=== PATIENT | male | born 1975 | race African-American/Black ===

== ENCOUNTER 2023-05-29 20:57 | Emergency (ER) | payer MEDICARE, MEDICAID ==
[~2023-05-29] VITALS: Ht 180.3 cm; Wt 81.0 kg
[~2023-05-29 20:57] MED LIST: OMEP20CA14 PO; PARO10TA74 PO; RISP-29 PO
[2023-05-29 21:00] VITALS: O2SAT 98
[2023-05-29 21:30] VITALS: BP 136/88; PULSE 84; RESP 18; TEMP 98.4
[2023-05-29] MEDS: KETOROLAC 60MG/2ML VIAL IM ONE (21:30)
[2023-05-29] MEDS: ACETAMINOPHEN 500MG TABLET PO ONE (21:30)
[2023-05-30 00:06] LABS: BASOPHILS % 0.3 % (0.0-2.0); EOSINOPHILS % 0.2 % (0.0-5.0); HEMATOCRIT. 25.9 % (42.0-52.0); HEMOGLOBIN. 8.4 g/dL (14.0-18.0); LYMPHOCYTES % 11.2 % (20.0-50.0); MEAN CORPUSCULAR HEMOGLOBIN 27.4 pg (28.0-32.0); MEAN CORPUSCULAR HGB CONC 32.5 g/dL (31.0-37.0); MEAN CORPUSCULAR VOLUME 84.3 fL (80.0-94.0); MEAN PLATELET VOLUME 8.6 fl (7.4-10.4); MONOCYTES % 6.5 % (2.0-8.0); NEUTROPHILS % 81.8 % (40.0-76.0); PLATELET 212 x1000/uL (130-400); RED BLOOD CELL COUNT 3.07 mill/uL (4.7-6.1); WHITE BLOOD COUNT 12.6 x1000/uL (4.5-11.0)
[2023-05-30 00:08] LABS: INR 0.9; PROTHROMBIN TIME 10.3 sec (9.6-11.0)
[2023-05-30 00:11] LABS: ALANINE AMINOTRANSFERASE 76 IU/L (10-49); ALBUMIN 4.1 g/dL (3.2-4.8); ASPARTATE AMINOTRANSFERASE 133 IU/L (<34); BILIRUBIN TOTAL 0.3 mg/dL (0.1-1.0); CALCIUM 9.1 mg/dL (8.7-10.4); CARBON DIOXIDE 20 mEq/L (21-32); CHLORIDE 107 mEq/L (98-107); CREATININE 1.1 mg/dL (0.6-1.3); GLUCOSE 159 mg/dL (70-105); POTASSIUM 3.7 mEq/L (3.5-5.1); PROTEIN TOTAL 6.8 g/dL (6.0-8.3); SODIUM 135 mEq/L (136-145); UREA NITROGEN BLOOD 14 mg/dL (9-23)
[2023-05-30] MEDS ORDERED: IOHEXOL-300 100 ML BOTTLE ONE (03:32)
[2023-05-31] MEDS ORDERED: IOHEXOL-300 100 ML BOTTLE ONE (14:08)
== END 2023-05-30 02:57 | disposition home or self-care (01) ==
LOC: ER 20:57
DX: R20.2 Paresthesia of skin (principal); E11.9 Type 2 diabetes mellitus without complications; F20.9 Schizophrenia, unspecified; K21.9 Gastro-esophageal reflux disease without esophagitis
CPT/HCPCS: 99284; 80053; 85025; 85610; 86850; 86900; 86901; 36415; 96372; 72132; J1885; Q9967

== ENCOUNTER 2023-08-27 17:27 | Emergency (ER) | payer MEDICARE, MEDICAID ==
[~2023-08-27] VITALS: Ht 170.2 cm; Wt 77.0 kg
[2023-08-27 17:29] VITALS: BP 132/84; PULSE 94; RESP 16; O2SAT 97
[2023-08-27] MEDS: TETANUS, DIPHTHERIA, PERTUSSIS VAC/PF 0.5ML (>10YR OLD) IM ONE (18:46)
[2023-08-27] MEDS: LIDOCAINE HCL/PF 1% 10 MG/ML 5ML VIAL INFIL ONE (18:46)
[2023-08-27] MEDS: HYDROCODONE/ACETAMINOPHEN 5/325MG TABLET PO ONE (18:46)
[2023-08-27] MEDS: IBUPROFEN 600MG TABLET PO ONE (18:47)
[2023-08-27] MEDS: BACITRACIN ZINC OINT UDPKT TOP ONE (18:47)
[2023-08-27] MEDS ORDERED: IBUP-2029 MT (19:41)
[2023-08-27] MEDS ORDERED: BO1 TP (19:41)
== END 2023-08-27 19:41 | disposition home or self-care (01) ==
LOC: ER 17:27
DX: S01.112A Laceration without foreign body of left eyelid and periocular area, initial encounter (principal); E11.9 Type 2 diabetes mellitus without complications; Z86.59 Personal history of other mental and behavioral disorders; Y04.0XXA Assault by unarmed brawl or fight, initial encounter; Y93.89 Activity, other specified; Y92.89 Other specified places as the place of occurrence of the external cause; Y99.8 Other external cause status
CPT/HCPCS: 99284; 70450; 70486; 72125; 90715; 12011; 90471; J3490

== ENCOUNTER 2023-08-30 10:35 | Emergency (ER) | payer MEDICARE, MEDICAID ==
[~2023-08-30] VITALS: Ht 167.6 cm; Wt 70.3 kg
[~2023-08-30 10:35] MED LIST changes: +BO1 TP; +IBUP-2029 MT
[2023-08-30 10:46] VITALS: BP 101/53; PULSE 80; RESP 16; TEMP 98; O2SAT 100
== END 2023-08-30 10:56 | disposition home or self-care (01) ==
LOC: ER 10:35
DX: S01.112D Laceration without foreign body of left eyelid and periocular area, subsequent encounter (principal); E11.9 Type 2 diabetes mellitus without complications; F20.9 Schizophrenia, unspecified; X58.XXXD Exposure to other specified factors, subsequent encounter
CPT/HCPCS: 99281

== ENCOUNTER 2023-09-03 07:39 | Emergency (ER) | payer MEDICARE, MEDICAID ==
[~2023-09-03] VITALS: Ht 167.6 cm; Wt 69.0 kg
[2023-09-03 07:55] VITALS: BP 102/66; PULSE 74; RESP 16; TEMP 98; O2SAT 100
== END 2023-09-03 08:24 | disposition home or self-care (01) ==
LOC: ER 07:39
DX: S01.112D Laceration without foreign body of left eyelid and periocular area, subsequent encounter (principal); E11.9 Type 2 diabetes mellitus without complications; Z48.02 Encounter for removal of sutures; Z86.59 Personal history of other mental and behavioral disorders; X58.XXXD Exposure to other specified factors, subsequent encounter
CPT/HCPCS: 99281

== ENCOUNTER 2023-12-01 08:32 | Emergency (ER) | payer BC, MEDICAID, MEDICARE ==
[~2023-12-01] VITALS: Ht 175.3 cm; Wt 77.0 kg
[2023-12-01 08:36] VITALS: O2SAT 98
[2023-12-01 09:01] LABS: BASOPHILS % 0.8 % (0.0-2.0); EOSINOPHILS % 0.9 % (0.0-5.0); HEMATOCRIT. 39.7 % (42.0-52.0); HEMOGLOBIN. 13.1 g/dL (14.0-18.0); LYMPHOCYTES % 40.9 % (20.0-50.0); MEAN CORPUSCULAR HEMOGLOBIN 29.7 pg (28.0-32.0); MEAN CORPUSCULAR HGB CONC 33.1 g/dL (31.0-37.0); MEAN CORPUSCULAR VOLUME 89.9 fL (80.0-94.0); MEAN PLATELET VOLUME 7.8 fl (7.4-10.4); MONOCYTES % 9.4 % (2.0-8.0); PLATELET 172 x1000/uL (130-400); RED BLOOD CELL COUNT 4.42 mill/uL (4.7-6.1); RED CELL DISTRIBUTION WIDTH 15.2 % (11.6-14.6); WHITE BLOOD COUNT 3.8 x1000/uL (4.5-11.0)
[2023-12-01 09:13] LABS: CHLORIDE 108 mEq/L (98-107); POTASSIUM 3.5 mEq/L (3.5-5.1); SODIUM 138 mEq/L (136-145)
[2023-12-01 09:14] LABS: CALCIUM 9.1 mg/dL (8.7-10.4); CARBON DIOXIDE 23 mEq/L (21-32)
[2023-12-01 09:19] LABS: GLUCOSE 156 mg/dL (70-105); UREA NITROGEN BLOOD 11 mg/dL (9-23)
[2023-12-01 09:35] LABS: TROPONIN I HIGH SENSITIVITY < 4 ng/L (3.0-53)
[2023-12-01 10:18] VITALS: BP 129/78; PULSE 101; RESP 18; TEMP 37.00296; O2SAT 98
== END 2023-12-01 10:19 | disposition home or self-care (01) ==
LOC: ER 08:55
DX: R07.9 Chest pain, unspecified (principal); R00.2 Palpitations; E11.9 Type 2 diabetes mellitus without complications; F20.9 Schizophrenia, unspecified
CPT/HCPCS: 80048; 85025; 85379; 84484; 36415; 71045; 93005; 99285; Z7610